=== PATIENT | female | born 1965 | race American Indian/Alaskan Native ===

== ENCOUNTER 2016-12-12 09:31 | Outpatient (CLI) | payer OTHER ==
--- NOTE | 2016-12-12 10:43 | XRay Report ---
BILATERAL KNEES, 2 VIEWS History: Arthritis, pain. Findings: There is normal bone mineralization. No acute osseous findings or joint pathology is appreciated. The soft tissues are unremarkable. Impression: Unremarkable bilateral knees.
--- NOTE | 2016-12-12 10:43 | XRay Report ---
BILATERAL ANKLES, 2 VIEWS History: Arthritis, pain. Findings: There is mild nonspecific soft tissue swelling or pedal edema. Normal bone mineralization. No acute osseous findings or joint pathology is appreciated. Impression: Nonspecific soft tissue swelling/edema. Unremarkable joint spaces.
--- NOTE | 2016-12-12 10:46 | XRay Report ---
LUMBAR SPINE RADIOGRAPHS: INDICATION: Back and joint issues, arthritis. COMPARISON: None similar. FINDINGS: AP and lateral lumbar spine radiographs demonstrate slight lower lumbar levocurvature apex about L4. Normal vertebral body stature. Fairly preserved disc heights. Lower lumbar facet arthropathy may be present. Intact SI joints. Nonobstructive bowel gas pattern. Abdominal aortic and few pelvic vascular calcifications. CONCLUSION: Mild lower lumbar degenerative changes without acute radiographic abnormality. Thank you for the opportunity to participate in this patient's care.
== END 2016-12-12 09:32 | disposition home or self-care (01) ==
LOC: XRAY 09:31
PROVIDERS: ATTEND Internal Medicine
DX: M47.896 Other spondylosis, lumbar region (principal); M12.88 Other specific arthropathies, not elsewhere classified, other specified site; M43.8X6 Other specified deforming dorsopathies, lumbar region; I70.0 Atherosclerosis of aorta; M25.561 Pain in right knee; M25.562 Pain in left knee; M25.472 Effusion, left ankle; M25.471 Effusion, right ankle
CPT/HCPCS: 72100